=== PATIENT | female | born 1995 | race Caucasian/White ===

== ENCOUNTER → 2021-08-01 | Day surgery (SDC) | payer BC ==
[~2021-08-01] VITALS: Ht 170.2 cm; Wt 56.7 kg
[~2021-08-01] MED LIST: CASIRIVIMAB 600 MG, IMDEVIMAB 600 MG in SODIUM CHLORIDE 0.9% 100 ML IV ONE
== END | disposition home or self-care (01) ==
LOC: OR 11:06
PROVIDERS: ATTEND Internal Medicine Critical Care Medicine
DX: Z11.52 Encounter for screening for COVID-19 (principal)
CPT/HCPCS: J7050; Q0244

== ENCOUNTER → 2024-07-13 | Outpatient (CLI) | payer OTHER | END | disposition home or self-care (01) | LOC: MRI 15:36 | PROVIDERS: ATTEND Nurse Practitioner Acute Care | DX: R51.9 Headache, unspecified (principal); G50.0 Trigeminal neuralgia; G93.89 Other specified disorders of brain | CPT/HCPCS: 70551 ==

== ENCOUNTER 2024-08-14 10:35 | Emergency (ER) | payer OTHER ==
[~2024-08-14] VITALS: Ht 172.7 cm; Wt 63.5 kg
[2024-08-14 10:40] VITALS: O2SAT 100
[2024-08-14 11:59] LABS: CHLORIDE 108 mEq/L (98-107); POTASSIUM 4.1 mEq/L (3.5-5.1); SODIUM 142 mEq/L (136-145)
[2024-08-14 12:00] LABS: CARBON DIOXIDE 26 mEq/L (21-32)
[2024-08-14 12:01] LABS: CALCIUM 9.4 mg/dL (8.7-10.4)
[2024-08-14 12:05] LABS: CREATININE 0.8 mg/dL (0.6-1.0); GLUCOSE 93 mg/dL (70-105); UREA NITROGEN BLOOD 11 mg/dL (9-23)
[2024-08-14 14:59] VITALS: BP 117/79; PULSE 74; RESP 16; TEMP 36.72516; O2SAT 100
[2024-08-14] MEDS ORDERED: IOHEXOL-350 100 ML BOTTLE ONE (15:09)
== END 2024-08-14 15:00 | disposition home or self-care (01) ==
LOC: ER 11:57
DX: R51.9 Headache, unspecified (principal)
CPT/HCPCS: 70544; 99285; 70496; 80048; 81025; 36415; 70498; 70547; 70553; Q9967